=== PATIENT | female | born 1995 | race Two or more races ===

== ENCOUNTER 2024-05-03 06:53 | Inpatient (IN) | payer OTHER ==
[~2024-05-03] VITALS: Ht 162.6 cm; Wt 81.6 kg
[2024-05-03] MEDS ORDERED: VALTREX1000 MG PO (07:25)
[2024-05-03] MEDS ORDERED: PRENATAL TABLE1 EAC1 PO (07:26)
[2024-05-03 07:57] LABS: INR < 0.93; PARTIAL THROMBOPLASTIN TIME 27.3 SECONDS (22.0-34.0); PROTHROMBIN TIME 9.3 SECONDS (9.0-11.5)
[2024-05-03 07:59] LABS: ALBUMIN 2.8 gm/dL (3.4-5.0); BILIRUBIN TOTAL 0.34 mg/dL (0.3-1.2); CALCIUM 9.4 mg/dL (8.5-10.1); CREATININE SERUM 0.61 mg/dL (0.55-1.02); GFR 117.65; GLOBULINA 4.1 G/DL (2.4-3.5); POTASSIUM 3.92 mEq/L (3.5-5.1); TOTAL PROTEIN 6.9 gm/dL (6.4-8.2)
[2024-05-03 08:10] LABS: HEMATOCRIT 37.1 % (36.0-45.00); HEMOGLOBIN 12.6 g/dL (12.0-15.00); MEAN CELL VOLUME 83.5 fL (80.00-100.00); MEAN CORPUSCULAR HEMOGLOBIN 28.3 pg (27.00-32.0); MEAN CORPUSCULAR HGB CONC 33.9 g/dl (32.0-36.0); RED BLOOD COUNT 4.44 M/uL (4.00-6.00); RED CELL DISTRIBUTION WIDTH 15.5 % (11.5-14.5)
[2024-05-03 08:28] LABS: PLATELET COUNT 155 K/uL (150-450)
[2024-05-03] MEDS ORDERED: DOCUSATE SODIUM 100MG CAP PO SCH (09:49)
[2024-05-03] MEDS ORDERED: ERYTHROMYCIN BASE 1 GM TUBE OP SCH (10:00)
[2024-05-03] MEDS ORDERED: OXYTOCIN 1,000 ML IV SCH (10:00)
[2024-05-03] MEDS ORDERED: CHLORHEXIDINE GLUCONATE 120 ML BOTTLE TOP SCH (10:00)
[2024-05-03] MEDS ORDERED: IBUprofen 400 MG TABLET PO PRN (10:00)
[2024-05-03] MEDS ORDERED: CHLORHEXIDINE GLUCONATE 120 ML BOTTLE TOP ONE (12:30)
[2024-05-03] MEDS ORDERED: LIDOCAINE HCL 1% 10ML VIAL IJ ONE (12:30)
[2024-05-03] MEDS ORDERED: ERYTHROMYCIN BASE 1 GM TUBE OP ONE (12:30)
[2024-05-04 07:23] LABS: HEMATOCRIT 25.2 % (36.0-45.00); MEAN CELL VOLUME 84.5 fL (80.00-100.00); MEAN CORPUSCULAR HGB CONC 34.1 g/dl (32.0-36.0); PLATELET COUNT 134 K/uL (150-450); RED BLOOD COUNT 2.99 M/uL (4.00-6.00); RED CELL DISTRIBUTION WIDTH 15.7 % (11.5-14.5)
[2024-05-04 07:38] LABS: MEAN CORPUSCULAR HEMOGLOBIN 28.7 pg (27.00-32.0)
[2024-05-04 07:39] LABS: HEMOGLOBIN 8.6 g/dL (12.0-15.00)
[2024-05-04] MEDS ORDERED: SOD FERRIC GLUC COMPLX/SUCROSE 62.5 MG/5 ML AMPUL IV NR (08:15)
[2024-05-04] MEDS ORDERED: PNV,CALCIUM 72/IRON/FOLIC ACID 1 TAB TABLET PO SCH (09:00)
[2024-05-04] MEDS ORDERED: FERROUS SULFATE 325 MG TABLET.EC PO NR (19:15)
[2024-05-05] MEDS ORDERED: FERROUS SULFATE 325 MG TABLET.EC PO SCH (12:00)
[2024-05-06] MEDS ORDERED: OxyCODONE HCL/APAP UD (PERCOCET) PO PRN (10:45)
[2024-05-06 14:38] LABS: HEMATOCRIT 32.4 % (36.0-45.00); HEMOGLOBIN 10.8 g/dL (12.0-15.00); MEAN CELL VOLUME 85.5 fL (80.00-100.00); MEAN CORPUSCULAR HEMOGLOBIN 28.6 pg (27.00-32.0); MEAN CORPUSCULAR HGB CONC 33.4 g/dl (32.0-36.0); PLATELET COUNT 271 K/uL (150-450); RED BLOOD COUNT 3.79 M/uL (4.00-6.00); RED CELL DISTRIBUTION WIDTH 16.3 % (11.5-14.5)
== END 2024-05-06 17:40 | disposition home or self-care (01) | DRG 807 ==
LOC: LDR 06:53 → OB/GYN 06:53 → EDBD 06:53 → OB/GYN 09:57
PROVIDERS: Obstetrics & Gynecology; ADMIT Obstetrics & Gynecology Gynecology; ATTEND Obstetrics & Gynecology Gynecology
PROC: 10E0XZZ Delivery of Products of Conception, External Approach (ICD-10-PCS; principal; 2024-05-04)
PROC: 0KQM0ZZ Repair Perineum Muscle, Open Approach (ICD-10-PCS; 2024-05-04)
PROC: 0UQG7ZZ Repair Vagina, Via Natural or Artificial Opening (ICD-10-PCS; 2024-05-04)
PROC: 4A1HXCZ Monitoring of Products of Conception, Cardiac Rate, External Approach (ICD-10-PCS; 2024-05-04)
DX: O70.1 Second degree perineal laceration during delivery (principal); Z37.0 Single live birth; Z3A.38 38 weeks gestation of pregnancy; Z20.822 Contact with and (suspected) exposure to COVID-19